=== PATIENT | female | born 1935 | race Caucasian/White ===

== ENCOUNTER 2019-10-06 16:17 | Inpatient (IN) | payer OTHER ==
[~2019-10-06] VITALS: Ht 162.6 cm; Wt 41.4 kg
[2019-10-06 16:27] VITALS: BP 141/65
[2019-10-06] MEDS ORDERED: NAMENDA XR28 MG PO (16:54)
[2019-10-06] MEDS ORDERED: TRAZODONE HCL50 MG PO (16:54)
[2019-10-06] MEDS ORDERED: SUDAFED 12 HOU120 MG PO (16:55)
[2019-10-06] MEDS ORDERED: TYLENOL EXTRA500 MG PO (16:55)
[2019-10-06] MEDS ORDERED: MYRBETRIQ25 MG PO (16:55)
[2019-10-06] MEDS ORDERED: ALEVE220 MG PO (16:56)
[2019-10-06] MEDS ORDERED: HYDROXYZINE HCL10 M2 PO (16:56)
[2019-10-06 17:17] VITALS: BP 139/67
[2019-10-06 18:28] VITALS: BP 153/58
--- NOTE | 2019-10-06 19:36 | NUR ---
patient arrived at 1745 from emergency room here at [facility]. Patient resides with daughter - patient had been at [facility] last eveing for increased confusion, inability to sleep and anxiety. LABS COMPLETED WHILE THERE. PATIENT WAS NOT IMPROVING WITH MEDICATION ORDERED AND DAUGHTER FELT SHE NEEDED TO BE EVALUATED FURTHER. PATIENT EXTREMELY CONFUSED ALERT 1-2 - UNABLE TO FOCUS AND ADMITS TO NOT REMEMBERING ANYTHING. ACCORDING TO DOCUMENTATION PATIENT HAD BEEN AT [facility] SEVERAL WEEKS AGO AND AFTERWARDS SHE SEEMED TO DECOMPENSATE. ALSO HAD D & C 11 DAYS AGO AND GIVEN ANETHSIA THAT DAUGHTER FELT CONTRIBUTED TO ADDITIONAL FORGETFULNESS AND INSOMNIA. PATIETN UNABLE TO SLEEP AND ANXIOUS ALL THE TIME. HAS HISTORY OF GOING [place] [facility] TO [facility] AT [place] FOR HALLUCINATIONS AND PARANOIA DO TO POLYPHARMACY WITH MEDICATIONS. PATIENT AMBULATORY AND CONTINENT. 84 YEAR OLD FEMALE - SKIN INTACT - WARM AND DRY. NO PULSES STRONG AND HEART RATE STRONG AND STEADY WHEN AUSCULTATED. LUNGS CLEAR IN BOTH UPPER AND LOWER LOBES. PATIENT ALERT AND ORIENTED 1-2 - NOT AWARE OF WHERE SHE IS OR WHY. APPEARS FRIGHTENED AND WORRIED. BECAME TEARFUL AT ONE POINT - PATIENT DAUGHTER DPOA - MEDICATIONS DISCUSSED WITH DR. RENNER AND PLACED ALONG WITH EKG AND DIET. CONSULTED DR. CERRATO HOSPITALIST WELL. PATIETN ALLERGIC TO BACTIM CAUSES VOMITING. PATIENT ACQUAINTED TO HER ROOM AND PROTOCOLS OF FACILITY DISCUSSED THOUGH RETENTION OF INFORMATION QUESTIONABLE. PATIENT BELONGINGS LOGGED IN AND IN HER LOCKER. 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 PATIENT IS ON REGULAR DIET AND STATES HAD GOOD APPETITE.
[2019-10-06 19:39] VITALS: BP 160/60
--- NOTE | 2019-10-06 20:16 | NUR ---
Assumed care on 10/06/19 @ 19:00, in the [facility]. Confused and asks to eat, then when provided her dinner tray, takes a bite then walks away from the table. Redirected multiple times, anxiety and tearfulness d/t confusion noted. Will continue to moniotr q 12 minutes for patient safety.
--- NOTE | 2019-10-07 02:04 | NUR ---
Continues to be confused, forgetful and need continual redirection. Ambulates independently, however asks questions continually regarding when is visiting (he is ). When other family members are arriving. Dressed for bed x1 staff assistance, laid down in bed, however gets up repeatedly. Returned to bed and gets up repeatedly. When seated in the day room, gets up and walks to staff or peers and asks questions repeatedly. A&O x 2 oriented to person and only. Cannot give today's date, name of president or name of hospital, unable to say that it is even a hospital. Reports that she thinks it is a hotel. New order for Melatonin 10 mg acquired from Leticia Ribeiro NP, and given @ 2300. Patient continues to be awake, anxious and confused. Order for Trazadone 50 acquired, and provided @ 0200. Given to patient who is in the day room in a recliner @ this time.
--- NOTE | 2019-10-07 06:01 | NUR ---
Did not sleep at all since admission yesterday evening. Continues to ambulate and demonstrate confusion, forgetfulness and disorientation. Did not have any results from Trazadone 50 mg x 2 or Melatonin 10mg.
[2019-10-07 09:06] VITALS: BP 135/65
--- NOTE | 2019-10-07 09:42 | EKG ---
[facility] [place] [address] ELECTROCARDIOGRAM REPORT Name: QUINCY HENDRICKS Room #: [facility] ADM IN M.R.#: [id number] Admission: 10/06/19 Attend Phys: Rupert Lopez DO Discharge: Date of : 31 Report #: [id number] THIS REPORT FOR: cc: FAM - No family physician/PCP FAM - No family physician/PCP Jez Syed MD [facility] THIS REPORT FOR: //name// [facility] Test Date: 2019-10-06 Test Time: 19:57:39 Pat Name: QUINCY HENDRICKS Department: Room: [facility] B Gender: F Assistant Corporation Counsel: Osiris ONTIVEROS : 1935 Requested By: Rupert Lopez Order Number: [id number] MD: Jez Syed Measurements Intervals [place] Rate: 110 P: 73 MI: 173 QRS: -68 QRSD: 118 T: 45 QT: 331 QTc: 448 Interpretive Statements Sinus tachycardia Incomplete RBBB and LAFB No previous ECG available for comparison Electronically Signed On 10-07-2019 9:41:36 CDT by Jez Syed [email or web address] <ELECTRONICALLY SIGNED> By: Jez Syed MD, FACC 10/07/19 0941 56 56 Jez Syed MD, [facility] /EPI
--- NOTE | 2019-10-07 14:07 | NUR ---
SW met with pt while she was in the dingin room. She stated that she was feeling tired and was hoping to lay down. there was no group due to the COVID 19 restrictions
--- NOTE | 2019-10-07 14:16 | NUR ---
ANXIOUS FACIAL EXPRESSION OBSERVED UPON INITAL ASSESSMENT THIS AM-RESTLESS AND PACING IN HALLWAYS AND DAYROOM. ORIENTED TO NAME ONLY-DESCRIBES LOCATION "THE OFFICE BUILDING" AND IDENTIFIES DATE OR AUGUST BUT WHEN ASKED ABOUT YEAR STATES "I DON'T KNOW" ATE BITES OF BREAKFAST C/O FEELING "TO UPSET TO EAT" -"I NEED TO TALK TO MY DAUGHTER-SHE HANDLES ALL OF THAT STUFF" DENIES SI/SH/HI. NO NOTED OR REPORTED PSYCHOSIS-A/V HALLUCINTATIONS. BP 135/54-[id number]-G-87-66.0 02 SAT 96 PERCENT ON RA. GAIT STEADY INITALLY THIS AM BUT AFTER PACING IN HALLWAYS NOTED TO HAVE A SLIGHT BACKWARD LEAN TO GAIT. DR. RENNER ON UNIT AND "O" RECEIVED TO AKILA [facility]. NO COGWHEEL RIGIDITY UPON EXAM. ZYPREXA 2.5 MG GIVEN PER NEW ORDER.DENIES C/O PAIN/DISCOMFORT
[2019-10-07 20:02] VITALS: BP 95/37
--- NOTE | 2019-10-08 04:02 | NUR ---
Assumed care on 10/06/18 @ 1900, in the mileu ambulating in the dayroom and the hallways independently without a walker. Alternately sitting, cooperated with VS and Assessment. A&Ox2 oriented to person and only. Calls this hospital a hotel room. Forgetful and confused about why she is here, cannot remember state that she lives with her daughter. HRRR, S1S2 auscultated, ABD N x 4 Q. Much calmer than she was yesterday. Went to bed by 2200 and is sleeping as of this writing. Bed in low position, bed alarm set, will continue to monitor q 12 mintues for patient safety.
[2019-10-08 04:11] VITALS: BP 95/37
--- NOTE | 2019-10-08 06:11 | NUR ---
slept 6.8
[2019-10-08 08:49] VITALS: BP 98/58
--- NOTE | 2019-10-08 12:20 | NUR ---
ASSUMED CARE AT 0700 THIS MORNING. PT. ASLEEP IN A RECLINING CHAIR ON THE UNIT. PT. WILL AROUSE WHEN TAPPED, THEN FALLS BACK TO SLEEP. HER MORNING MEDICATIONS WAS CRUSHED AND PUT IN PUDDING. SHE DID TAKE THE MEDICATIONS WITHOUT PROBLEMS. SHE DID NOT EAT BREAKFAST OR LUNCH, HOWEVER. STAFF CONTINUES TO WORK WITH WAKING HER UP, BUT SHE CONTINUES TO SLEEP.
[2019-10-08 12:26] VITALS: BP 98/58
--- NOTE | 2019-10-08 12:58 | NUR ---
MONICA contacted Vlad, pt's daughter and DPOA, and she gave SW hx on pt. Pt had a birthday on Sep 11 and then a DNC shortly after; both appeared to overwhelm pt and she has become agitated and suffers from lack of sleep as a result. She has 5 children; she currently lives with Moses. At this time, the family wishes her to return. However, Jocy has been looking for memory care options just in case her behaviors become too much for her to handle. She currently receives 4 hours of in home care 4 days a week from [facility]. She is also a devout Yarsanism. She needs assistance with walking, bathing, and dressing, and she wears a hearing aide and glasses at home. There are NKDA or allergies to food, however, her stomach becomes upset with Ibuprofen. Jocy mentioned them having issues with finding a psychiatrist to follow pt. MONICA emailed Jocy a listing of NH providers and psych providers based on pt's insurance to [email or web address] MONICA team will continue to follow pt during her stay on this unit.
[2019-10-08 20:00] VITALS: BP 146/58
[2019-10-08 21:00] VITALS: BP 146/58
--- NOTE | 2019-10-08 22:00 | NUR ---
Assumed care of patient this pm shift. Patient sitting in the mileu watching tv with other peers. Patient in good spirits, calm and cooperative with nurse. Patient appears confused this evening. Patient is oriented to self. Patient takes medications whole. Patient denies pain. Patient denies hi/si. Patient ambulates with out assistance. Patients assessment shows clear breath sounds, active bowel sounds, and s1 s2 heard with auscultation. Patient is easy to redirect. We will continue to monitor.
[2019-10-09 08:34] VITALS: BP 139/51
[2019-10-09 10:49] VITALS: BP 139/51
--- NOTE | 2019-10-09 13:14 | NUR ---
assumed care at 0700. Patient is alert and oriented x2. very forgetful. Patients keeps on saying " I have beeen lost for about two weeks now and i think my family can't find me" Pt is easily reoriented but forgetful. Pleasant, calm, and cooperative. Takes medications and meals without any problem. patient walks without support around the unit. Denies SI/HI. Sometimes she is anxious and comes to the nurses station so often for reassuarance that her family knows she is here. Vital signs are stable. Will continue with the plan of care.
--- NOTE | 2019-10-09 18:31 | H ---
[facility] [place] [address] HISTORY AND PHYSICAL Name: QUINCY HENDRICKS Room #: 527A-A ADM IN M.R.#: [id number] Admission: 10/06/19 Attend Phys: Rupert Lopez DO Discharge: Date of : 31 Report #: [id number] THIS REPORT FOR: cc: ZAIRA - No family physician/PCP FAM - No family physician/PCP Rupert Lopez DO ~ CC: Rupert MENESES physician/PCP ATTENDING PHYSICIAN: Rupert Lopez DO LIME KILN OPERATOR: Clarence Reza MD., Izabela Liu is the nurse practitioner. REASON FOR ADMISSION: Sleep disturbance, agitation, history of dementia, inability to care by the family. HPI On 10/05/2019, she presented [place] [facility] by her daughter for past week patient has not slept, anxious, confused, from the treatment records. The patient had a birthday libertarian 2 weeks ago, which seems to have agitated her, 11 days ago she underwent a dilation and curettage by Cage Shift Manager for postmenopausal bleeding, hemorrhagic polyp was found to be the cause. This was done under general anesthesia. In addition, another factor was she was seen by her PCP, who prescribed her hydroxyzine. She had increased anxiety and insomnia. Also, of note, she was admitted to Geriatric Psych Unit in March 2019 at [facility] for hospitalization. Her Xanax was stopped at that point, sounds like similar concerns from behavioral standpoint. Patient has not had a cough and fever. She is eating and drinking adequately. She has chronic musculoskeletal pain. She was not having auditory or visual hallucinations in the [place] [facility]. HOME MEDICATIONS: Aspirin 81 mg p.o. daily, citalopram 20 mg p.o. daily, which was not correct, memantine XR 28 mg daily and she is no longer taking simvastatin. ALLERGIES: NOTED TO BACTRIM. SOCIAL HISTORY: She has high school education. 5, para 5. No tobacco, alcohol or recreational drug history. Her health history, she has a history of breast cancer age 68, received significant chemotherapy. LABORATORY DATA: From 10/04 at [place], sodium 139, potassium 4.4, chloride 101, [facility] [address] [place] [address] HISTORY AND PHYSICAL Name: RUTHIEQUINCY Cristian Room #: 527A-A ADM IN [facility]#: [id number] Admission: 10/06/19 Attend Phys: Rupert Lopez DO Discharge: Date of : 31 Report #: [id number] bicarbonate 30, anion gap 8, glucose 149, BUN 19, creatinine 0.64, GFR non- 81, calcium 9.3, osmolality 293, total protein 6.4, albumin 3.8, globulin 2.6, total bilirubin 0.2, direct bilirubin 0.2, indirect 0.00. Alk phos 52, AST 14, ALT 14. White count 5.0, H and H 13.1 and 38.0, platelet count 166. Urinalysis grossly negative except 2+ mucus, trace bacteria, 100-150 red blood cells, 0-2 white blood cells. Alcohol less than 10. Salicylate less than 0.3. She was positive for amphetamines likely due to her taken pseudoephedrine at home. Apparently, there was a CT of the head done without contrast and chest x-ray, dont have records of that. ADDITIONAL MEDICAL HISTORY: Diagnosis of dementia [address] Juan Amor. He also later on felt she did have some mild Parkinson disease. CT head scan by the way showed atrophy, no change from prior. No acute intracranial lesions. Chest x-ray showed no acute pathology. HOSPITALIZATIONS: 1 psych as above. PHYSICAL EXAMINATION: VITAL SIGNS: Today as follows: Temperature 36.7, pulse rate 110 this morning, respiratory rate 20, BP 135/65, O2 sat 97%. MUSCULOSKELETAL: She has unilateral tremor in her right hand, I saw today. She does have an extended posture, questionable for retropulsion, she was a little bit unsteady with gait, had to hold her hand. Also, the confusion. She was speaking to her , will be joining her here, he is probably. Has not been able to get from point A to point B. Anyway denied auditory, visual, or tactile hallucinations. Memory grossly impaired. Insight impaired, judgment impaired. Fund of knowledge well below average. FORMULATION: An 84-year-old female with a history of dementia, admitted for sleep disturbance, agitation and difficulty redirecting. PLAN: Evaluate, stabilize, obtain collateral. I have started her empirically on Haldol 1 mg t.i.d. Given the parkinsonian symptoms, we will discontinue that and start olanzapine 2.5 mg p.o. b.i.d. Also, the daughter clarified for me that she is no longer taking a statin medication so I will discontinue that, no longer taking citalopram, slowly reduce the polypharmacy burden. ESTIMATED LENGTH OF STAY: 10-14 days. We will schedule family meeting later this week. At the moment, I do not see a point in doing additional labs. Time spent on interview, review of records, evaluation, coordination of care is at least 60 minutes. STRENGTHS: She is insured, supportive family. [address] [address] HISTORY AND PHYSICAL Name: QUINCY HENDRICKS Room #: 527A-A [facility] IN ..#: [id number] Admission: 10/06/19 Attend Phys: Rupert Lopez DO Discharge: Date of : 31 Report #: [id number] WEAKNESSES: Advancing age, having a neurodegenerative disease. <ELECTRONICALLY SIGNED> By: Rupert Lopez DO 10/09/19 1831 1349 [id number] Rupert Lopez DO /nt
[2019-10-09 20:25] VITALS: BP 124/53
--- NOTE | 2019-10-09 22:52 | NUR ---
Assumed care of patient this pm shift. Patient is pleasantly confused. Patient needs constant redirection. Patient denies pain. Patient denies hi/si. Patient believes family has forgotten her and does not know that she is here. Patient is calm and cooperative. Patient took medications whole but needed reminded to to swallow what was in her mouth. Patient ambulates without assistance. Patients assessment shows clear breath sounds, active bowel sounds, and s1 s2 heard with auscultation. Patient has flight of ideas. We will continue to monitor.
[2019-10-10 09:03] VITALS: BP 157/78
[2019-10-10 10:53] VITALS: BP 157/78
--- NOTE | 2019-10-10 12:48 | NUR ---
Assumed care at 0700. Patient awake nd ready for breakfast. Patient is calm and pleasantly confused. Walks around following staff asking questions. sometimes its hard to comprhend what she is asking or worried about. She is most concerned about the family not coming for her. Patient took her meals well but she needs someone helping out by cutting into small pieces or or atleast sitting with her to encourange her to eat. Denies SI/HI/HOBBS. Vitals are stable. Will continue with the plan of care.
--- NOTE | 2019-10-10 13:39 | NUR ---
09:00 PATIENT SAT IN GROUP BUT NO PARTICIPATION, SHE IS VERY CONFUSED AND NERVOUS. 10:00 [employer] GROUP PATIENT ATTENDED BUT JUST SAT IN CHAIR NODDING OFF. I ENCOURAGED PATIENT TO START PARTICIPATING MORE IN ACTIVITIES.
[2019-10-10 19:06] VITALS: BP 114/65
--- NOTE | 2019-10-10 22:48 | NUR ---
Pt alert and pleasantly confused. Pt was wandering the [place] prior to assessment. Pt sat in the dayroom for assessment. Pt was very calm and cooperative. No anxiety or depression noted. Pt denies SI/HI. Pt took meds whole. Pt had Hs snacks. Pt did sat in the dayroom for a while, then wandered around a little more before heading to bed. Pt currently awake laying in bed. Will continue to monitor.
[2019-10-11 08:48] VITALS: BP 132/73
[2019-10-11 10:24] VITALS: BP 132/73
--- NOTE | 2019-10-11 11:28 | NUR ---
Assumed care at 0700. Patient awake and walking around. Confused and not able to answer behavoral question. She keeps on saying she wants to go "upstairs" and thats where her family lives. Patients feeds self but someone has to be there to encourage her. Vital signs are stable. Will continue to monitor.
--- NOTE | 2019-10-11 18:31 | NUR ---
patient pleasantly confused and walking around the unit. Sometimes entering peers room but easily directable.
[2019-10-11 19:33] VITALS: BP 143/68
[2019-10-12 09:07] VITALS: BP 118/53
--- NOTE | 2019-10-12 12:05 | NUR ---
MONICA and Dr. Lopez met with pt's son Eron Arambula who said pt is mumbling and stooping in her seat too much. Dr. Lopez agreed to adjust pt's meds. Eron will come back at noon and assess his mother again. SW team will continue to follow pt during her stay on this unit.
[2019-10-12 13:10] VITALS: BP 118/53
--- NOTE | 2019-10-12 13:16 | NUR ---
ASSUMED CARE AT 0700 THIS MORNING. PT. IS PLEASANT AND WANDERING AROUND THE UNIT AIMSLESSLY. SHE IS CONFUSED. SHE IS COOPERATIVE WITH TAKING HER MONING MEDICATIONS. SHE SAT IN THE DINING ROOM DURING MORNING GROUP. NO NEW PROBLEMS NOTED OR VOICED. NO SI/HI NOTED AND NO AVH NOTED EITHER.
--- NOTE | 2019-10-12 15:13 | NUR ---
Due to COVID-19 SW is meeting with patients and completing check-ins. Pt did not respond to SW when she did a check-in. She instead was confused and attempted to lay on another [facility] staff.
[2019-10-12 19:52] VITALS: BP 132/61
--- NOTE | 2019-10-13 04:40 | NUR ---
Assumed care on 10/12/19 @ 1900, sitting in a chair in the mileu, occasionally ambulating in the halls. Calm quiet, wandering. HRRR, Lungs diminished - not able to follow directions to breath deeply for assessment. ABD N x 4 q, reports had bm yesterday. Up ad sujey, continent. A&O x 2, pleasant affect, confusion noted. Compliant with medications. Takes meds whole with water. In bed with bed in low position, eyes closed, respirations even and unlabored. Will continue to monitor q 12 mintes for patient safety.
[2019-10-13 09:31] VITALS: BP 158/72
--- NOTE | 2019-10-13 16:41 | NUR ---
Sitting at table this AM with head on table. Ambulated to room with slow gait. Orientated to self only. Confused speech. Denies SI/HI. Much more awake in afternoon ambulating around unit with steady gait. Compliant and cooperative. Breath sounds clear t/o, bilaterally equal. Reg HR auscultated. Color pink with brisk capillary refill and palpable peripheral pulses. Independent with voiding. Active bowel sounds over soft, flat abdomen. LBM 10/09/19.
--- NOTE | 2019-10-13 17:10 | NUR ---
SW completed a check in instead of group with pt's due to COVID-19 guidelines Pt insisted on speaking with her daughter during check in. SW brought pt to her office and called her daughter; pt wanted to know when she was leaving. Pt's daughter gave her the plan of pt's son coming to visit her again on to assess if she is ready and she may go home that day. Pt appeared to be okay with that response. SW then walked pt back to her room and talked to her about resting as she had been wondering the halls looking for the doctor for a while. She allowed SW to walk her to her room and assist her into her bed. MONICA heard a yell in the dining room; a patient was receiving a shot. This frightened this patient so SW went and talked with her and reassured her everything was okay. SW walked her to the table where her food is. SW heard pt's nurse encourage her to eat as she had not eaten much throughout the day. SW team will continue to follow pt during her stay.
[2019-10-13 19:44] VITALS: BP 148/56
--- NOTE | 2019-10-14 04:32 | NUR ---
Assumed care of pt @ 1900. Pt calm et cooperative this shift. Pt appears to be mildly confused et spoke of her being admitted with her into her room yesterday. When pt was corrected et informed that her was not here with her, pt stated "oh yeah, that's right". Ambulates halls ad sujey with slightly unsteady gait. VSWNL. Health assessment with no abnormalities noted at present time. Denies SI/HI @ present time. Took medications whole without difficulty. Currently resting in bed with eyes closed. Will continue to monitor per protocol.
[2019-10-14 06:01] LABS: HEMATOCRIT 38.5 % (37.0-47.0); MCHC 33.8 g/dL (28.0-37.0); MCV 100.6 fL (80.0-100.0); RBC 3.83 mil/uL (4.20-5.00); RDW 12.3 % (10.5-14.5); WBC 5.9 thou/uL (4.0-11.0)
[2019-10-14 06:17] LABS: CREATININE 0.9 mg/dL (0.6-1.0); POTASSIUM 3.6 mmol/L (3.5-5.1)
[2019-10-14 09:25] VITALS: BP 127/54
--- NOTE | 2019-10-14 18:07 | NUR ---
Assumed pt care at 7am.Pt in and out of room wandering in hallways with steady gait.Assessment completed,vss.Pt took all meds as scheduled and well tolerated.Later this afternoon,pt c/o headache and tylenol po given with relief.Pt now back in bed resting in her room without c/o.Will continue to monitor.
[2019-10-14 19:57] VITALS: BP 121/66; BP 127/54
--- NOTE | 2019-10-15 04:54 | NUR ---
Assumed care on 10/14/19 @ 1900, sitting in the mileu, occasionally socializes with peers, responds when spoken to by staff. Cooperates with assessment HRRR, Lungs CTA, ABD N x 4Q, Small, hard formed bm noted by staff today. Denies SI/HI, reports anxiety about the bank. In bed with eyes closed, respirations even and unlabored, bed in low position, will monitor q 12 minutes for patient safety.
[2019-10-15 08:20] VITALS: BP 139/39
--- NOTE | 2019-10-15 08:59 | NUR ---
PT OUT IN DINNING ROOM. PT ABLE TO FEED SELF. PT ABLE TO TAKE MEDS THIS AM. PT DID POUR WATER INTO MED CUP, THIS TRADE CLERK PLACED THOSE MEDS IN PUDDING. PT TOLERATED WELL. NO BEHAVIORS SEEN FROM PATIENT.
[2019-10-15 09:34] VITALS: BP 139/39
--- NOTE | 2019-10-15 10:30 | NUR ---
ASSISTED PT TO BATHROOM. PT BRIEF WAS DRY WITH DRIED BLOOD ON IT. THIS IS NORMAL PER DR. SCHULTZ. 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
--- NOTE | 2019-10-15 12:15 | NUR ---
PT SON IS HERE FOR POTENTIAL DISCHARGE TODAY OR TOMMORROW. SON IS UPSET DUE TO PAPERWORK FOR D/C WAS NOT DONE AND PT WAS IN BED RESTING. PT SON WORRIED ABOUT HER NOT BEING ABLE TO EAT LUNCH. THIS CMM PROGRAMMER WENT INTO ROOM TO SEE IF SHE WOULD LIKE TO EAT LUNCH OR VISIT HER SON. PT STILL SLEEPING, DIDN'T WAKE UP WITH VERBAL STIMULI. SON WOULD LIKE IF SHE WAS D/C TOMMORROW, HE SAID THAT WOULD WORK OUT BETTER FOR HIM AND FAMILY.
--- NOTE | 2019-10-15 14:45 | NUR ---
PT SLILL SLEEPING WITH EYES CLOSED IN BED.
[2019-10-15 19:47] VITALS: BP 140/62
--- NOTE | 2019-10-16 04:50 | NUR ---
Assumed care of pt @ 1900. Pt calm et cooperative with pleasant demeanor. Took medications whole without difficulty. Ambulates the halls ad sujey with steady gait. Denies SI/HI @ present time. Socialized with peers in dayroom until HS. VSWNL. Health assessment with no abnormalities other than previously noted. Currently resting in bed with eyes closed. Will continue to monitor per protocol.
[2019-10-16 08:00] VITALS: BP 119/62
--- NOTE | 2019-10-16 09:00 | NUR ---
PT IN DINING ROOM TO EAT. PT ABLE TO WALK WITH OR WITHOUT WALKER. PT APPEARS TO BE MORE STEADY WITH WALKER. PT DENIES ANY PAIN. PT TOOK AM MEDS WITHOUT ANY ISSUES. PT LBM 10/13.
[2019-10-16] MEDS ORDERED: TRAZODONE HCL100 MG PO (09:38)
[2019-10-16] MEDS ORDERED: SEROQUEL 25 MG25 M1 PO ×2 (09:41→09:42)
[2019-10-16] MEDS ORDERED: NAMENDA 5 MG TAB5 M1 PO (09:42)
[2019-10-16] MEDS ORDERED: COLACE 100 MG100 MG PO (09:43)
[2019-10-16] MEDS ORDERED: PEPCID AC10 MG PO (09:44)
[2019-10-16] MEDS ORDERED: SENNA-TIME S T1 EACH PO (09:44)
[2019-10-16 11:23] VITALS: BP 140/62
--- NOTE | 2019-10-16 11:30 | NUR ---
[facility] IS HERE TO TRANSPORT PT TO HOME. HE VERBALY UNDERSTOOD D/C ORDERS. MEDICATIONS WERE GONE THROUGH AND UNDERSTOOD. PT LEFT VIA W/C TO CAR. PT HAD HAIR WASHED VIA SHOWER CAP, PT HAS CLEAN CLOTHES ON.
--- NOTE | 2019-10-16 14:10 | NUR ---
MONICA D/C note Contacted Demetrice Sheehan's office and confirmed pt has a scheduled psych appt December 17, 2019 @11am. MONICA also received the fax number of [phone]. MONICA spoke with Eron Arambula and reviewed the MONICA handout with him; she included pt's appt with [facility] as well as how to engage with [facility] before that appointment for psych services. MONICA faxed discharge docs to [facility] and submitted the fax and confirmation to pts file. No other needs for MONICA team to address at this time.
--- NOTE | 2019-10-17 15:03 | D ---
[facility] [place] [address] DISCHARGE SUMMARY Name: QUINCY HENDRICKS Room #: 527B-B DIS IN M.R.#: [id number] Admission: 10/06/19 Attend Phys: Rupert Lopez DO Discharge: 10/16/19 Date of : 31 Report #: [id number] THIS REPORT FOR: cc: ZAIRA - Matilde family physician/PCP ZAIRA - No family physician/PCP Rupert Lopez DO ~ THIS REPORT FOR: //name// CC: Rupert Lopez FAM physician/PCP DATE OF SERVICE: 10/16/2019 PSYCHIATRIC DISCHARGE SUMMARY ATTENDING PHYSICIAN: Rupert Lopez DO. NUT CRACKER: Shaila Chmapagne MD DISCHARGE DIAGNOSES: Major neurocognitive disorder, likely due to Alzheimer disease with behavioral disturbance, improved. MEDICAL COMORBIDITIES: Recent D and C secondary to vaginal bleeding due to hemorrhagic polyp, hyperlipidemia, Pepcid for GERD. DISCHARGE DIET: Regular with Ensure Enlive chocolate, Magic Cup twice daily. ACTIVITY LEVEL: As tolerated. The patient requires 24/ care and supervision. She will be discharged into her son, Eron's home. DISCHARGE MEDICATIONS: Trazodone 100, hydrochloride 100 mg p.o. at bedtime p.r.n. for sleep. Seroquel 25 mg p.o. at 0900 hours and 12.5 mg at 1500 hours and 25 mg p.o. at 2100 hours, Rx given for 25 mg #75. Continue memantine, she was taking the XR version, chose 28 mg at home. Colace 100 mg p.o. b.i.d., senna-S 2 tabs p.o. b.i.d., famotidine 20 mg p.o. daily. Son or daughter will contact me in about 3 to 3-1/2 weeks and I will prescribe her medication. Psychiatric followups in mid December [address] Aguila Perez. REASON FOR ADMISSION: An 84-year-old female. She was seen by Michael the day before admission, actually brought by her daughter. She is not sleeping, pacing. History of dementia. Family has difficulty caring for her. HOSPITAL COURSE: The patient was admitted to Geriatric Psychiatry Unit. The patient was pacing, elected to start her on Seroquel. Risks, benefits, alternatives to treatment with an atypical antipsychotic in a dementia patient were discussed with Jocy the [facility]. The patient's sleep improved, appetite [facility] [address] [place] [address] DISCHARGE SUMMARY Name: QUINCY HENDRICKS Room #: 527B-B [facility]#: [id number] Admission: 10/06/19 Attend Phys: Rupert Lopez, DO Discharge: 10/16/19 Date of : 31 Report #: [id number] some. She is aware of the day of discharge, not suicidal or homicidal. PHYSICAL EXAMINATION: VITAL SIGNS: On the day of discharge, temperature 37.1, pulse 103, respirations 17, BP 119/62. MUSCULOSKELETAL: Physical exam frail. Normal gait. Normal station. MENTAL STATUS EXAMINATION: This is a well-developed, frail, ill-appearing female. Attention limited. Concentration limited. Speech is normal rate. Thought process linear and limited. Thought content, relative poverty of thought. Some psychomotor agitation. No psychomotor retardation. Denied SI or HI. Memory noted to be impaired. Insight limited. Judgment impaired. Fund of knowledge below average. Prognosis for this patient is guarded given her advanced age and neurodegenerative disease. LABORATORY DATA: CBC grossly normal except MCV 100.6. Chemistries: BUN 27, glucose 139, estimated GFR 59. Sodium 140, potassium 3.6, chloride 104, bicarbonate 29. <ELECTRONICALLY SIGNED> By: Rupert Lopez DO 10/17/19 1503 [id number] 1711 Rupert Lopez DO /nt
== END 2019-10-16 10:45 | disposition home or self-care (01) | DRG 56 ==
LOC: ER 16:17 → SBH 17:25 → ER 17:25 → SBH 17:55
PROVIDERS: Hospitalist; ADMIT Psychiatry & Neurology Psychiatry
DX: G30.9 Alzheimer's disease, unspecified (principal); F02.81 Dementia in other diseases classified elsewhere, unspecified severity, with behavioral disturbance; E43 Unspecified severe protein-calorie malnutrition; F01.51 Vascular dementia, unspecified severity, with behavioral disturbance; Z68.1 Body mass index [BMI] 19.9 or less, adult; E78.5 Hyperlipidemia, unspecified; K21.9 Gastro-esophageal reflux disease without esophagitis; G20 Parkinson's disease; F02.80 Dementia in other diseases classified elsewhere, unspecified severity, without behavioral disturbance, psychotic disturbance, mood disturbance, and anxiety; F41.9 Anxiety disorder, unspecified; G47.9 Sleep disorder, unspecified; Z79.891 Long term (current) use of opiate analgesic; Z79.899 Other long term (current) drug therapy
CPT/HCPCS: 10880